=== PATIENT | male | born 1965 | race Two or more races ===

== ENCOUNTER 2018-10-17 09:25 | Outpatient (CLI) | payer OTHER | END 2018-10-17 09:59 | disposition home or self-care (01) | LOC: MAMO-SONO 09:25 | DX: M54.2 Cervicalgia (principal); E04.8 Other specified nontoxic goiter ==

== ENCOUNTER 2019-10-21 10:42 | Outpatient (CLI) | payer OTHER | END 2019-10-21 10:45 | disposition home or self-care (01) | LOC: NUCLEAR 10:42 | DX: E04.8 Other specified nontoxic goiter (principal) | CPT/HCPCS: 78013; A9512 ==

== ENCOUNTER 2023-02-16 13:55 | Inpatient (IN) | payer OTHER ==
[~2023-02-16] VITALS: Ht 180.3 cm; Wt 85.7 kg
== END 2023-02-21 16:03 | disposition home or self-care (01) | DRG 392 ==
LOC: ER 13:55 → MEDJ 21:26
PROVIDERS: Surgery; ADMIT Specialist; ATTEND Specialist
PROC: BW21ZZZ Computerized Tomography (CT Scan) of Abdomen and Pelvis (ICD-10-PCS; 2023-02-16)
PROC: 0TPD8DZ Removal of Intraluminal Device from Urethra, Via Natural or Artificial Opening Endoscopic (ICD-10-PCS; principal; 2023-02-19 13:30)
DX: K57.32 Diverticulitis of large intestine without perforation or abscess without bleeding (principal); N13.2 Hydronephrosis with renal and ureteral calculous obstruction; E86.0 Dehydration; F12.90 Cannabis use, unspecified, uncomplicated

== ENCOUNTER 2023-03-09 07:32 | Outpatient (CLI) | payer OTHER | END 2023-03-09 07:44 | disposition home or self-care (01) | LOC: LAB 07:32 | PROVIDERS: ATTEND Urology | DX: N20.0 Calculus of kidney (principal); Z20.822 Contact with and (suspected) exposure to COVID-19 ==

== ENCOUNTER 2023-03-09 09:41 | Inpatient (IN) | payer OTHER ==
[~2023-03-09] VITALS: Ht 181.6 cm; Wt 77.6 kg
[2023-03-14] MEDS ORDERED: OLANZAPINE5 MG (16:18)
[2023-03-14] MEDS ORDERED: LAMIVUDINE-ZID1 EACH (16:18)
[2023-03-14] MEDS ORDERED: BUPROPION XL300 MG (16:18)
[2023-03-14] MEDS ORDERED: EFAVIRENZ (16:18)
[2023-03-14] MEDS ORDERED: FLUOXETINE HCL20 MG (16:18)
== END 2023-03-16 09:37 | disposition home or self-care (01) | DRG 694 ==
LOC: SURH 03-14 07:00 → O/R 03-14 10:34 → SURG 03-14 16:28
PROVIDERS: ADMIT Urology; ATTEND Urology
PROC: 0TP98DZ Removal of Intraluminal Device from Ureter, Via Natural or Artificial Opening Endoscopic (ICD-10-PCS; 2023-03-14)
PROC: BT1DZZZ Fluoroscopy of Right Kidney, Ureter and Bladder (ICD-10-PCS; 2023-03-14)
PROC: 0TC08ZZ Extirpation of Matter from Right Kidney, Via Natural or Artificial Opening Endoscopic (ICD-10-PCS; principal; 2023-03-14 07:00)
DX: N20.0 Calculus of kidney (principal)

== ENCOUNTER 2023-03-21 11:47 | Outpatient (CLI) | payer OTHER ==
[~2023-03-21 11:47] MED LIST: BUPROPION XL300 MG; EFAVIRENZ; FLUOXETINE HCL20 MG; LAMIVUDINE-ZID1 EACH; OLANZAPINE5 MG
== END 2023-03-21 11:55 | disposition home or self-care (01) ==
LOC: RAD 11:47
PROVIDERS: ATTEND Urology
DX: N20.0 Calculus of kidney (principal)